=== PATIENT | female | born 1965 | race Caucasian/White ===

== ENCOUNTER 2016-05-27 12:40 | Emergency (ER) | payer MEDICARE, OTHER ==
[2016-05-27] MEDS ORDERED: MORPHINE 4 MG/ML SYR ONE (14:18)
[2016-05-28] MEDS ORDERED: ENOXAPARIN 60 MG/0.6 ML SYR SUBQ ONE (05:12)
[2016-05-28] MEDS ORDERED: AZITHROMYCIN 500 MG VIAL IV ONE (05:13)
[2016-05-28] MEDS ORDERED: CEFTRIAXONE 1 GM VIAL ONE (05:13)
[2016-05-28] MEDS ORDERED: SODIUM CHLORIDE 0.9% 100 ML IV ONE (05:13)
[2016-05-28] MEDS ORDERED: SODIUM CHLORIDE 0.9% 250 ML IV ONE (05:13)
== END 2016-05-27 15:04 | disposition home or self-care (01) ==
LOC: ER 12:40
DX: Z76.0 Encounter for issue of repeat prescription (principal); G89.29 Other chronic pain; F17.290 Nicotine dependence, other tobacco product, uncomplicated
CPT/HCPCS: 96372; 99283; J0696; J2270; J7050

== ENCOUNTER 2016-05-29 13:21 | Emergency (ER) | payer MEDICARE, OTHER ==
[2016-05-29] MEDS ORDERED: MORPHINE 4 MG/ML SYR ONE (17:01)
== END 2016-05-29 17:28 | disposition home or self-care (01) ==
LOC: ER 13:21
DX: Z76.0 Encounter for issue of repeat prescription (principal); R10.2 Pelvic and perineal pain; F17.200 Nicotine dependence, unspecified, uncomplicated; Z79.899 Other long term (current) drug therapy
CPT/HCPCS: 80307; 96372; 99283; J2270

== ENCOUNTER 2016-06-02 11:49 | Emergency (ER) | payer MEDICARE, OTHER | END 2016-06-02 13:24 | disposition home or self-care (01) | LOC: ER 11:49 | DX: Z76.0 Encounter for issue of repeat prescription (principal); R10.2 Pelvic and perineal pain; G89.29 Other chronic pain ==

== ENCOUNTER 2016-06-03 18:20 | Emergency (ER) | payer MEDICARE, OTHER ==
[2016-06-03] MEDS ORDERED: FENTANYL 25 MCG/24 HR PATCH TRANSDERM ONE (21:11)
[2016-06-03] MEDS ORDERED: MORPHINE 4 MG/ML SYR ONE (21:11)
== END 2016-06-03 21:52 | disposition home or self-care (01) ==
LOC: ER 18:20
DX: R10.2 Pelvic and perineal pain (principal); G89.29 Other chronic pain; F17.210 Nicotine dependence, cigarettes, uncomplicated
CPT/HCPCS: 96372; 99283; J2270

== ENCOUNTER 2016-06-06 22:40 | Emergency (ER) | payer MEDICARE, OTHER ==
[2016-06-06] MEDS ORDERED: ASPIRIN 81 MG CHEW TAB ONE (23:15)
[2016-06-07] MEDS ORDERED: ONDANSETRON 4 MG VIAL ONE (00:27)
[2016-06-07] MEDS ORDERED: MORPHINE 4 MG/ML SYR ONE ×2 (00:27→02:25)
[2016-06-07] MEDS ORDERED: KETOROLAC 30 MG/ML VIAL ONE (00:27)
== END 2016-06-07 03:26 | disposition home or self-care (01) ==
LOC: ER 22:40
DX: R07.9 Chest pain, unspecified (principal); F17.200 Nicotine dependence, unspecified, uncomplicated; Z79.899 Other long term (current) drug therapy
CPT/HCPCS: 36415; 71010; 80053; 80307; 82550; 83735; 84484; 85025; 85379; 85610; 85730; 93005; 96374; 96375; 96376; 99285; J1885; J2270; J2405